=== PATIENT | male | born 1980 | race Hispanic/Latino ===

== ENCOUNTER 2018-01-05 20:56 | Emergency (ER) | payer OTHER ==
[~2018-01-05] VITALS: Ht 172.7 cm; Wt 76.2 kg
[2018-01-05] MEDS ORDERED: NAPROSYN500 MG PO (21:45)
[2018-01-05 21:50] VITALS: BP 131/85
== END 2018-01-05 21:50 | disposition home or self-care (01) | DRG 605 ==
LOC: ED 20:56
DX: S50.11XA Contusion of right forearm, initial encounter (principal); W22.8XXA Striking against or struck by other objects, initial encounter; Y93.89 Activity, other specified; Y92.73 Farm field as the place of occurrence of the external cause